=== PATIENT | female | born 1995 | race Caucasian/White ===

== ENCOUNTER 2016-11-06 01:58 | Emergency (ER) | payer OTHER ==
[~2016-11-06] VITALS: Ht 162.6 cm; Wt 92.0 kg
[2016-11-06 02:07] VITALS: Ht 162.6 cm; Wt 92.0 kg
[2016-11-06] MEDS ORDERED: HYDROCODONE/APAP (5/325) TAB PO ONE (06:30)
[2016-11-06] MEDS ORDERED: NPH10OT RIGHT EAR (06:39)
[2016-11-06] MEDS ORDERED: IBUP800T25 PO (06:40)
[2016-11-06] MEDS ORDERED: AMOX1TAB10 PO (06:40)
--- NOTE | 2016-11-06 06:53 | ERD ---
ER Documentation Chief Complaint Date/Time DATE: 11/06/16 TIME: 06:50 Chief Complaint right ear pain HPI This is a 21-year-old female who presents the emergency department today complaining of right ear pain for the past couple of days it was worse when she woke up this morning is having a hard time sleeping. States that she took ibuprofen a few hours prior to arrival with no improvement. Denies any fevers or chills, sore throat. ROS All systems reviewed and are negative except as per history of present illness. Medications Home Meds Active Scripts Ibuprofen* (Motrin*) 800 Mg Tab, 800 MG PO Q6, #30 TAB Prov:NATHALY HOGAN PA-C 11/06/16 Amoxicillin/Potassium Clav (Amox-Clav 875-125 mg Tablet) 875-125 mg Tab, 1 TAB PO BID for 7 Days, #14 TAB Prov:NATHALY HOGAN PA-C 11/06/16 Neomycin/Polymyxin/Hydrocort* (Cortisporin* Otic) 10 Ml Susp, 4 DROP RIGHT EAR QID for 7 Days, EA Prov:NATHALY HOGAN PA-C 11/06/16 Allergies Allergies: Coded Allergies: No Known Allergy (Unverified , 11/06/16) PMhx/Soc Medical and Surgical Hx: pt denies Medical Hx, pt denies Surgical Hx Physical Exam Vitals Vital Signs Date Time Temp Pulse Resp B/P Pulse Ox O2 Delivery O2 Flow Rate FiO2 11/06/16 02:07 97.6 88 20 140/82 99 Physical Exam Const: NAD Head: Atraumatic Eyes: Normal Conjunctiva ENT: Left ear TM normal. Right ear with evidence of drainage. Unable to see TM. non tender mastoid. Nose no drainage. Throat erythema no exudate. Neck: Full range of motion..~ No meningismus. Resp: Clear to auscultation bilaterally Cardio: Regular rate and rhythm, no murmurs Abd: Soft, non tender, non distended. Normal bowel sounds Skin: No petechiae or rashes Neur: Awake and alert Psych: Normal Mood and Affect Results 24 hrs Current Medications Medications (Trade) Dose Ordered Sig/Romain Route PRN Reason Start Time Stop Time Status Last Admin Dose Admin Acetaminophen/ Hydrocodone Bitart ([place] (5/325)) 1 tab ONCE ONCE PO 11/06/16 06:30 11/06/16 06:31 DC 11/06/16 06:30 Procedures/MDM This is a 21 year-old female presents emergency department today complaining of right sided ear pain for the past couple of days and worse this morning. On physical exam patient has some drainage from the right side of her ear and her symptoms at this time appear most consistent with otitis externa. I am unable to see the TM and therefore I will treat the patient for otitis media as well. Low suspicion for mastoiditis. Patient was given [place] here in the emergency department. Patient will be given a prescription for Cortisporin, Augmentin, Motrin for home. At this time the patient is stable for discharge and outpatient management. Patient should follow up with their PCP in the next 1-2 days. They may return to the emergency department sooner for any persistent or worsening of symptoms. Patient understood and agreed with the plan. Departure Diagnosis: Primary Impression: Right ear pain Condition: Fair Patient Instructions: Otitis Externa (Child) Referrals: your PCP Additional Instructions: Call your primary care doctor TOMORROW for an appointment during the next 1-2 days.See the doctor sooner or return here if your condition worsens before your appointment time. Take Tylenol or Motrin for pain Take antibiotics as prescribed NATHALY HOGAN PA-C Nov 06, 2016 06:53
== END 2016-11-06 06:57 | disposition home or self-care (01) ==
LOC: FTE 01:58
DX: H92.01 Otalgia, right ear (principal)
CPT/HCPCS: Z7502; Z7610; 99283

== ENCOUNTER 2017-08-23 04:32 | Emergency (ER) | END 2017-08-23 05:45 | disposition home or self-care (01) ==